=== PATIENT | female | born 1990 | race Caucasian/White ===

== ENCOUNTER 2017-05-04 10:47 | Day surgery (SDC) | payer OTHER ==
[~2017-05-04] VITALS: Ht 170.2 cm; Wt 87.0 kg
[2017-05-04 11:09] VITALS: BP 117/87; PULSE 66; TEMP 98.4
[2017-05-04] MEDS ORDERED: PRILOTC PO (12:11)
[2017-05-04 18:26] VITALS: BP 111/73; PULSE 76
== END 2017-05-04 12:37 | disposition home or self-care (01) ==
LOC: SDCO 10:47
DX: K29.30 Chronic superficial gastritis without bleeding (principal); K30 Functional dyspepsia; F17.210 Nicotine dependence, cigarettes, uncomplicated
CPT/HCPCS: OP; J2250; J3010; J7030